=== PATIENT | male | born 1945 | race Caucasian/White ===

== ENCOUNTER 2016-05-25 17:33 | Emergency (ER) | payer MEDICARE, OTHER ==
[~2016-05-25] VITALS: Ht 182.9 cm; Wt 113.6 kg
[2016-05-25 17:37] VITALS: BP 230/112; PULSE 78; RESP 20; O2SAT 95
[2016-05-25 17:53] VITALS: BP 207/81; PULSE 78; RESP 15; O2SAT 96
--- NOTE | 2016-05-25 18:40 | ED.REPORT ---
HPI-Abd Pain M 40 and Over Date of Service May 25, 2016 ED Provider: Keron Diaz DO A 71 year old male with no pertinent medical history presents to the ED complaining of sharp abdominal pain. The pain is concentrated in the right side of his abdomen. It began intermittently two days ago but has been constant for the last eight to ten hours. The pt also admits to nausea, vomiting, and diarrhea but denies dysuria. He also denies any history of appendectomy or kidney stones. Nursing Notes Stated Complaint: RIGHT LOWER QUADRANT PAIN Chief Complaint: Male Abdominal Pain Nursing Notes Reviewed: Yes Allergies: Coded Allergies: No Known Allergies (Verified Allergy, Unknown, 10/23/04) Uncoded Allergies: No Known Allergies (Allergy, Unknown, 10/23/04) No Active Prescriptions or Reported Meds General Time Seen by MD: 18:39 Chief Complaint Abdominal pain Hx Obtained From: Patient Arrived By: Walk-in Sudden in Onset?: No Onset Occurred: 2 days ago Recent Healthcare: No recent doctor visit, No recent hospitalization Similar Sx Previous: No Past Medical History Past Medical History none reported Past Surgical History bilateral hip replacement Smoking History Unknown if Ever Smoker Social History Alcohol Use: Denies alcohol use Drug Use: Denies drug use Other Social History: Good social support, Ambulatory Status Independent Review of Systems Constitutional: Denies: Fever Respiratory: Denies: Non-productive cough, Shortness of breath Cardiovascular: Denies: Chest pain GI: Reports: Abdominal pain, Diarrhea, Nausea, Vomiting Male: Denies Dysuria Musculoskeletal: Denies: Back pain, Neck pain Complete sys rev & neg: except as marked. Physical Exam Initial Vital Signs Vital Signs (First) Date Time Temp Pulse Resp B/P Pulse Ox O2 Delivery O2 Flow Rate FiO2 05/25/16 17:37 36.7 78 20 230/112 95 Room Air Initial VS: Reviewed General/Constitutional: Awake, Alert Respiratory / Chest: Atraumatic, Breath sounds NL, Breath sounds = bilat, No respiratory distress Cardiovascular: Heart rate NL, Regular rhythm, Heart sounds NL symmetric pedal pulses Abdomen: Atraumatic, Soft tender RLQ no abdominal bruit Back: Atraumatic, Full range of motion Head / Eyes: Atraumatic, Normocephalic, PERRL, EOMI ENT: Atraumatic, Airway patent, Mucous membranes moist Skin: Atraumatic, Color NL, No rash, Warm, Dry no flank ecchymosis Neurologic: Oriented X3, Speech NL, No motor deficits, No sensory deficits Neck: Atraumatic, Supple, Full range of motion Upper Extremity / MS: Atraumatic, Full range of motion Lower Extremity / Pelvis / MS: Atraumatic, Full range of motion Psychiatric: Affect NL, Mood NL Interpretation & Diagnostics Lab Results Interpretation Result Diagram: 05/25/16 1825 05/25/16 1825 Test 05/25/16 18:25 05/25/16 19:49 White Blood Count 12.1th/mm3 (3.8-10.1) Red Blood Count 5.92mil/mm3 (4.40-5.80) Hemoglobin 16.4g/dL (13.8-17.2) Hematocrit 48.6% (41.0-50.0) Mean Corpuscular Volume 82.1fL (81-100) Mean Corpuscular Hemoglobin 27.7pg (27.0-35.0) Mean Corpuscular Hemoglobin Concent 33.7% (32.0-37.0) Red Cell Distribution Width 13.9% (12.3-15.4) Platelet Count 267bil/L (150-400) Neutrophils (%) (Auto) 71.4% (40-74) Lymphocytes (%) (Auto) 15.9% (14-46) Monocytes (%) (Auto) 8.9% (4-12) Eosinophils (%) (Auto) 3.1% (0-5) Basophils (%) (Auto) 0.5% (0-3) Sodium Level 140mEq/L (134-144) Potassium Level 4.6mEq/L (3.5-5.2) Chloride Level 101mEq/L (97-108) Carbon Dioxide Level 26mmol/L (18-29) Blood Urea Nitrogen 20mg/dL (8-27) Creatinine 1.08mg/dL (0.76-1.27) Estimat Glomerular Filtration Rate 71mL/min (>59) Glucose Level 131mg/dL (60-99) Lactic Acid Level 0.2mmol/L (0.4-2.0) Calcium Level 9.8mg/dL (8.5-10.1) Magnesium Level 2.0mg/dL (1.6-2.6) Total Bilirubin 0.5mg/dL (0.0-1.2) Aspartate Amino Transf (AST/SGOT) 21U/L (0-50) Alanine Aminotransferase (ALT/SGPT) 26U/L (0-44) Alkaline Phosphatase 66U/L (25-160) Troponin T < 0.010ug/L (0.0-0.011) Total Protein 7.6g/dL (6.4-8.4) Albumin 4.1g/dL (3.4-5.0) Lipase 31U/L (13-60) Hold Jesus Top Tube Received (Received) Urine Color Yellow (YELLOW) Urine Appearance Clear (CLEAR,HAZY) Urine pH 5.5 (5.0-8.0) Urine Specific [place] 1.020 (1.003-1.035) Urine Protein Negativemg/dL (NEG,TRACE) Urine Glucose (UA) Negativemg/dL (NEGATIVE) Urine Ketones Negativemg/dL (NEGATIVE) Urine Occult Blood Small (NEGATIVE) Urine Nitrite Negative (NEGATIVE) Urine Bilirubin Negative (NEGATIVE) Urine Urobilinogen Normalmg/dL (NORMAL) Urine Leukocyte Esterase Negative (NEGATIVE) Urine RBC 0-2/hpf (0-2) Urine WBC 0-5/hpf (0-5) Urine Epithelial Cells Few/hpf (NONE-MOD) Urine Crystals None seen (NONE SEEN) Urine Bacteria Few/hpf (NONE-FEW) Urine Hyaline Casts None/lpf (NONE) Urine Granular Casts None seen (NONE SEEN) Urine Waxy Casts None seen (NONE SEEN) Urine Red Blood Cell Casts None seen (NONE SEEN) Urine White Blood Cell Casts None seen (NONE SEEN) Urine Mucus None seen (None Seen) Urine Trichomonas None seen (NONE SEEN) Urine Yeast None (NONE SEEN) Urinalysis Comment None Urine Culture Reflexed Not indicated Pulse Oximetry Interpretation Pulse Oximetry Interpretation: 95% on room air Pulse Oximetry: Pulse Ox normal Pulse Oximetry Interpretation: 96% on room air Pulse Oximetry: Pulse Ox normal ECG Interpretation ECG Interpretation: normal sinus rhythm with a rate of 84 Time: 19:25 Interpreted by: ED physician CT Abd / Pelvis Interpretation IMPRESSION: 1. No evidence of appendicitis. 2. Duplicated right renal collecting system with mild pelvocaliectasis and mild periureteral fat stranding off the lower pole moiety. The findings may reflect sequelae of reflux and possible urinary tract infection but no definite heterogeneous enhancement identified in the kidney to suggest pyelonephritis by imaging. No perinephric fluid collections. 3. Bilateral nephrolithiasis. 4. Hepatic steatosis. Dictated by: Dexter Simmons M.D. on 05/25/2016 at 20:09 Approved by: Dexter Simmons M.D. on 05/25/2016 at 20:22 Interpretation / Wet Read by: Interpret - Radiologist Re-Eval/Medical Decision Med Decision/Clinical Course I think that Josemanuel is passing a kidney stone. We just cannot appreciate a stone due to the artifact from his hips. He has colicky right-sided abdominal pain and has kidney stones seen in his kidneys. His right ureter looks inflamed to me. He has got a little blood in his urine. Otherwise he is great. I will put him on antibiotics the event that this is infectious urethritis. We will culture his urine. We will treat him symptomatically and have him strain his urine. He feels well at discharge like to go home. Myocardial infarction highly unlikely. He has had pain in his lower abdomen for 4 days and has a negative troponin. And he is going to do well. Outpatient follow-up recommended. Addendum: May 26 about 5 PM as I was driving into work I called Josemanuel. He is doing great. No further pain. He continues to strain his urine. We are going to follow up with the urine cultures. While at work check the urine culture is not growing anything yet. Source of Hx: Old records Time of Eval: 21:03 Patient Status: Condition improved Re-Evaluation/Progress Note: Pt rechecked, who is resting comfortably. He is informed of his lab and radiology results, as well as the diagnosis and plan for discharge. The pt understands and agrees with the plan. All questions are addressed at this time. Counseled Regarding: Diagnosis, Lab results, Need for follow-up, When/why to return to ED Discharge & Departure Primary Impression: Abdominal pain Abdominal location: unspecified location Qualified Code: R10.9 - Unspecified abdominal pain Additional Impression: Ureteritis Disposition: Home Vital Signs - All Vital Signs Date Time Temp Pulse Resp B/P Pulse Ox O2 Delivery O2 Flow Rate FiO2 05/25/16 22:40 82 165/65 97 Room Air 05/25/16 22:18 82 165/65 97 Room Air 05/25/16 21:27 88 169/74 94 Room Air 05/25/16 19:50 93 195/82 95 Room Air 05/25/16 17:53 78 15 207/81 96 Room Air 05/25/16 17:37 36.7 78 20 230/112 95 Room Air )( All Prior VS Reviewed: Yes Condition: Stable Patient Instructions: Acute Abdominal Pain (ED) Additional Instructions: Take Cipro 500 mg twice daily for 7 days. If you develop any tendon pain or weakness while on the Cipro, stop taking it immediately. Take 1-2 [place] every 6 hours as needed for pain. Do not drive, drink alcohol, or consume acetaminophen while taking the [place]. Return to the emergency room tomorrow if you have no significantly improved. Your blood pressure was markedly elevated in the emergency department. The blood pressure decreased with pain control, but you should check your blood pressure regularly and follow up with with your primary care physician regarding this. Call on Friday to arrange follow up next week. Return to the emergency department if you develop any new or worsening symptoms. Referrals: [facility] Scribe Attestation Portions of this note were transcribed by Gaby Pinzon. I, Dr. Diaz personally performed the history, physical exam and medical decision-making; I reviewed and confirmed the accuracy of the information in the transcribed note. Signed by: Flor Nicole, 05/25/2016 and 2332. copies to: [facility] Keron Diaz DO May 25, 2016 18:40 GABY PINZON May 25, 2016 18:53
[2016-05-25 18:44] LABS: BASOPHILS % (AUTO) 0.5 % (0-3); EOSINOPHILS % (AUTO) 3.1 % (0-5); MONOCYTES % (AUTO) 8.9 % (4-12); Mean Corpuscular Hemoglobin 27.7 pg (27.0-35.0); Mean Corpuscular Volume 82.1 fL (81-100); NEUTROPHILS % (AUTO) 71.4 % (40-74); Platelet Count 267 bil/L (150-400)
[2016-05-25] MEDS ORDERED: 0.9% Sodium Chloride 1,000 ML IV ONE (18:55)
[2016-05-25] MEDS ORDERED: HYDROmorphone 0.5 mg/0.5 mL iSecure Syringe IVPUSH PRN (18:55)
[2016-05-25 19:50] VITALS: BP 195/82; PULSE 93; O2SAT 95
[2016-05-25 20:22] LABS: APPEARANCE,URINE CLEAR (CLEAR,HAZY); COLOR,URINE YELLOW (YELLOW); OCCULT BLOOD,URINE SMALL (NEGATIVE); PH,URINE 5.5 (5.0-8.0)
[2016-05-25 20:23] LABS: UROBILINOGEN,URINE NORMAL (NORMAL)
--- NOTE | 2016-05-25 20:24 | DRSVH ---
PROCEDURE: CT ABDOMEN AND PELVIS WITH CONTRAST ([id number]) INDICATIONS: RLQ pain TECHNIQUE: After the administration of oral and intravenous contrast, 5 mm thick sections acquired from the diap hragms to the symphysis. 5 mm thick coronal and sagittal reformats were performed. For radiation do se reduction, the following was used: automated exposure control, adjustment of mA and/or kV accordi ng to patient size. COMPARISON: None. FINDINGS: Image quality: There is metallic streak artifact from patient's hip prostheses limiting evaluation. ABDOMEN: Lung bases: There is mild dependent atelectasis bilaterally. Heart size is normal. Solid organs: There is diffuse hypoattenuation of the liver consistent with fatty infiltration. Ther e are also a few small focal hypodensities measuring up to 9 mm in the left hepatic lobe which are to o small to characterize but likely represent cysts. Biliary system is non-dilated. Pancreas enhance s normally. No adrenal nodules. There is a duplicated right renal collecting system. There is mild periureteral stranding associated with the lower pole moiety. There is also mild pelvocaliectasis o f the lower pole moiety. The upper pole moiety and left renal collecting system are nondistended. T he distal ureters are not visualized due to streak artifact in the pelvis. There is a punctate nonob structing stone in the lower pole of the right kidney and 2 small nonobstructing stones in the lower pole of the left kidney measuring up to 5 mm. There are small bilateral renal cysts. There is mild nonspecific perinephric stranding bilaterally. Peritoneum and bowel: Stomach, small bowel, and colon loops are normal in caliber and wall thickness . No evidence of appendicitis. No free fluid or air. Nodes and vessels: No retroperitoneal or mesenteric adenopathy. Aorta and inferior vena cava are no rmal in caliber. Miscellaneous: No ventral hernias. PELVIS: Genitourinary: Bladder wall thickness is normal. Miscellaneous: No inguinal hernias or adenopathy. Bones: No suspicious bony lesions. There is a mild anterior compression deformity of the L1 vertebr al body which is likely chronic with partial fusion along the T12-L1 disc space. IMPRESSION: 1. No evidence of appendicitis. 2. Duplicated right renal collecting system with mild pelvocaliectasis and mild periureteral fat str anding off the lower pole moiety. The findings may reflect sequelae of reflux and possible urinary t ract infection but no definite heterogeneous enhancement identified in the kidney to suggest pyelonep hritis by imaging. No perinephric fluid collections. 3. Bilateral nephrolithiasis. 4. Hepatic steatosis. Dictated by: Dexter Simmons M.D. on 05/25/2016 at 20:09 Approved by: Dexter Simmons M.D. on 05/25/2016 at 20:22
[2016-05-25] MEDS ORDERED: Labetalol 5 mg/mL 4 mL Inj IVPUSH ONE (21:05)
[2016-05-25] MEDS ORDERED: _HYDROcodone/APAP 5-325 mg Tablet PO PRN (21:10)
[2016-05-25] MEDS ORDERED: cefTRIAXone Inj 2,000 MG in Dextrose 5% Minibag Plus 50 ML IV ONE (21:10)
[2016-05-25 21:27] VITALS: BP 169/74; PULSE 88; O2SAT 94
[2016-05-25 22:18] VITALS: BP 165/65; PULSE 82; O2SAT 97
[2016-05-25] MEDS ORDERED: HYDROcodone-APAP 5-325 mg Tablet PO ONE (22:20)
[2016-05-25 22:40] VITALS: BP 165/65; PULSE 82; O2SAT 97
[2016-05-26] MEDS ORDERED: Sodium Chloride LOK Flush 10 mL Syringe IVFLUSH SCH (00:30)
== END 2016-05-25 22:41 | disposition home or self-care (01) ==
LOC: SED 17:33
DX: N28.89 Other specified disorders of kidney and ureter (principal)
CPT/HCPCS: 36415; 74177; 80053; 81000; 83605; 83690; 83735; 84484; 85025; 87086; 93005; 96361; 96365; 96375; 99285; J0696; J1170; J7030; Q9967